=== PATIENT | male | born 1980 | race Caucasian/White ===

== ENCOUNTER 2023-04-03 11:18 | Emergency (ER) | payer BC, SELFPAY ==
--- NOTE | 2023-04-03 11:37 | EXP.UTC ---
Discharge Plan Disposition Patient Disposition: Home, Self-Care Condition: Good Prescriptions Prescriptions: New cephalexin 500 mg capsule 500 mg PO QID Qty: 40 0RF Referrals Follow up/Referrals: Adi Murphy [Primary Care Provider] - See instructions Activity Restrictions/Add. Instructions Additional Instructions/Restrictions: Keep the wound clean and dry. Keep a dressing on it if you are going to be getting it dirty. Watch the wound for signs of infection, such as redness, swelling, drainage, fever. etc. Take tylenol or ibuprofen for pain. Follow up with your regular doctor. Return in 10 days to have the sutures removed. GO TO THE ER FOR ANY WORSENING SYMPTOMS OR CONCERNS. Wear the knee immobilizer for the next couple of days to give the wound time to start healing before you start bending it regularly. Clinical Impressions Clinical Impression: Laceration of knee, left, Need for Tdap vaccination Instructions Patient Instructions: DI for Laceration Repair -- Simple, Tetanus, Diphtheria, and Pertussis Vaccine Discharge ED Provider: Nixon Encinas [facility] General Stated complaint: [id number] lac to left knee, home accident Time Seen by Provider: 04/03/23 11:37 History of Present Illness Provider Complaint: He states that he was using a chain saw this morning when the blade touched his left knee. He has a laceration on the front of his left knee. His tetanus immunization is not up to date. Related Data Previous Rx's Medication Instructions Recorded cephalexin 500 mg capsule 500 mg PO QID #40 caps 04/03/23 Allergies Allergy/AdvReac Type Severity Reaction Status Date / Time No Known Allergies Allergy Verified 04/03/23 11:50 [facility] Disclaimer: The information contained in this section may have been updated after the patient was seen, as this information can be updated by other users. Social History Smoking Status: Unknown if ever smoked alcohol intake: current current occupational status: other Travel in the last 8 weeks: None ROS Obtained: Yes All systems reviewed & no additional complaints except as documented Constitutional Constitutional: Denies chills and Denies fever(s) Eyes Eyes: Denies eye discharge ENT Ears, Nose, Mouth, and Throat: Denies dizziness, Denies otalgia and Denies sore throat Cardiovascular Cardiovascular: Denies chest pain Respiratory Respiratory: Denies shortness of breath, Denies chest congestion, Denies cough, Denies stridor and Denies wheezing Gastrointestinal Gastrointestingal: Denies nausea or vomiting Musculoskeletal Musculoskeletal: Reports system reviewed and no additional complaints, except as documented and Denies arthralgias Integumentary/Breasts Skin/Breast: Reports as per HPI Neurologic Neurologic: Denies dizziness and Denies paresthesias Allergic/Immunologic Allergic/Immunologic: Denies wheezing Physical Exam General General appearance: alert and in no apparent distress Head Head exam: atraumatic and normocephalic Eye Eye exam: Present normal appearance, PERRL and EOMI ENT ENT exam: Present normal exam, mucous membranes moist, TM's normal bilaterally and normal external ear exam Neck Neck exam: Present normal inspection, full ROM and trachea midline; Absent tenderness, meningismus or lymphadenopathy Chest Chest inspection: Present normal inspection and symmetric chest wall rise; Absent tenderness Respiratory Respiratory exam: Present normal lung sounds bilaterally; Absent respiratory distress, wheezes or stridor Cardiovascular Cardiovascular exam: Present regular rate, normal rhythm and normal heart sounds Abdominal Exam Abdominal exam: Present soft and normal bowel sounds; Absent distention, tenderness, guarding, rebound, rigidity, incision, psoas sign, obturator sign, heel tap sign, Boudreaux's sign, Rovsing's sign or tenderness at McBurney's Point Extremities Exam Extremities exam: Present normal cap
[2023-04-03 11:45] VITALS: BP 135/82; PULSE 71; RESP 18; TEMP 36.8; O2SAT 98; BMI 30.3
[2023-04-03 13:20] VITALS: BP 135/82; PULSE 71; RESP 18; TEMP 36.8; O2SAT 98
== END 2023-04-03 13:20 | disposition home or self-care (01) ==
PROVIDERS: Emergency Provider Nurse Practitioner Family; PCP Family Medicine
DX: S81.012A Laceration without foreign body, left knee, initial encounter (principal); Z23 Encounter for immunization; W29.3XXA Contact with powered garden and outdoor hand tools and machinery, initial encounter
CPT/HCPCS: 12002; 90715; 96372; 99204; 99213; G0463